=== PATIENT | female | born 2000 | race African-American/Black ===

== ENCOUNTER 2020-12-23 08:25 | Emergency (ER) | payer OTHER ==
[2020-12-23 09:48] LABS: Bilirubin Neg (Negative); Blood, Urine Negative (Negative); Glucose, Urine (Dipstick) Normal (Negative); Ketone, Urine Negative (Negative); Leukocyte Negative (Negative); Nitrite Negative (Negative); Protein, Urine (Dipstick) Negative (Neg-Trace); Urobilinogen Normal mg/dL (Less than 2)
[2020-12-23 09:55] LABS: Clarity Clear (Clear)
[2020-12-23 11:32] LABS: Pregnancy Test - Urine (BHCG) Negative (Negative)
[2020-12-23 11:33] LABS: Pregu Control Background? CLEAR/WHITE (CLR/WHITE); Pregu Control Bar Appear? YES (CONTROL BAR)
== END 2020-12-23 11:28 | disposition home or self-care (01) ==
LOC: CSHERS 08:25
DX: M79.10 Myalgia, unspecified site (principal); N89.8 Other specified noninflammatory disorders of vagina; D64.9 Anemia, unspecified
CPT/HCPCS: 81003; 81025; 93005